=== PATIENT | female | born 1985 | race Caucasian/White ===

== ENCOUNTER → 2020-06-25 | Outpatient (CLI) | payer OTHER | END | disposition home or self-care (01) | LOC: LABWHC1 17:08 | PROVIDERS: ATTEND Family Medicine | DX: Z20.822 Contact with and (suspected) exposure to COVID-19 (principal) | CPT/HCPCS: U0003; C9803 ==

== ENCOUNTER → 2022-09-25 | Outpatient (CLI) | payer BC ==
[2022-09-25 16:32] LABS: Basophils # (A) 0.06 X 10*3/uL (0.00-0.10); Basophils % (A) 0.8 %; Eosinophils # (A) 0.24 X 10*3/uL (0.04-0.35); Eosinophils % (A) 3.1 %; HCT 46.1 % (37.2-46.3); HGB 14.3 d/dL (12.0-15.0); Lymphocytes # (A) 2.07 X 10*3/uL (0.90-5.00); MCH 28.8 pg (27.0-32.0); MCV 92.8 FL (80.0-97.0); Mean Platelet Volume 9.3 FL (9.5-12.2); Monocytes # (A) 0.56 X 10*3/uL (0.20-1.00); Monocytes % (A) 7.3 %; NRBC Per 100 WBC 0 X 10*3/uL (0.00-0.01); Neutrophils # (A) 4.73 X 10*3/uL (1.80-7.70); Neutrophils % (A) 61.5 %; Platelet Count 283 X 10*3/uL (140-440); RBC 4.97 X 10*6/uL (4.10-5.20); RDW 13.7 % (11.5-14.5); WBC 7.68 X 10*3/uL (4.50-10.00)
[2022-09-25 17:04] LABS: ALT 21 U/L (8-44); AST 16 U/L (13-35); Albumin 4.3 d/dL (3.8-4.9); Albumin/Globulin Ratio 1.54 Ratio (1.60-3.17); Alkaline Phosphatase 64 U/L (41-126); BUN/Creat Ratio 17.62 Ratio (12.00-20.00); Blood Urea Nitrogen 14.1 mg/dL (9.0-27.0); Calcium 9.3 mg/dL (8.7-10.3); Carbon Dioxide 19.4 mmol/L (21.6-31.8); Chloride 109 mmol/L (96-109); Globulin 2.8 d/dL (1.6-3.3); Glucose 98 mg/dL (70-110); Potassium 4.6 mmol/L (3.5-5.5); Sodium 140 mmol/L (135-145); Total Bilirubin <0.2 mg/dL (0.3-1.2); Total Protein 7.1 d/dL (6.2-8.2)
== END | disposition home or self-care (01) ==
LOC: LABWHC1 09:00
PROVIDERS: ATTEND Family Medicine
DX: E78.5 Hyperlipidemia, unspecified (principal)
CPT/HCPCS: 36415; 80053; 85025

== ENCOUNTER 2023-10-29 07:25 | Emergency (ER) | payer BC ==
[2023-10-29 07:31] VITALS: RESP 18
--- NOTE | 2023-10-29 07:41 | ED ---
Skin/Abscess/FB HPI - General Chief complaint: Skin/Abscess/Foreign Body Stated complaint: glass in foot Time Seen by Provider: 10/29/23 07:32 Source: patient, RN notes reviewed Mode of arrival: wheelchair Limitations: no limitations - History of Present Illness Initial comments: This is a 38-year-old female who presents to the emergency department for a piece of glass in her left foot. States that she had a thermometer explode and in the process of cleaning up the glass she accidentally stepped on it with her left foot. She has discomfort to the touch and with ambulation from the small piece of glass. Unsure when her last tetanus vaccine was. complaint: foreign body - Related Data Allergies Allergy/AdvReac Type Severity Reaction Status Date / Time No Known Allergies Allergy Verified 10/29/23 07:31 Review of Systems ROS Statement: Those systems with pertinent positive or pertinent negative responses have been documented in the HPI. ROS Other: All systems not noted in ROS Statement are negative. Past Medical History Past Medical History: No Reported History History of Any Multi-Drug Resistant Organisms: None Reported Past Surgical History: Cholecystectomy Past Psychological History: No Psychological Hx Reported Smoking Status: Never smoker Past Alcohol Use History: None Reported Past Drug Use History: None Reported General Exam Limitations: no limitations General appearance: alert, in no apparent distress Head exam: Present: atraumatic, normocephalic, normal inspection Respiratory exam: Present: normal lung sounds bilaterally. Absent: respiratory distress, wheezes, rales, rhonchi, stridor Cardiovascular Exam: Present: regular rate, normal rhythm, normal heart sounds. Absent: systolic murmur, diastolic murmur, rubs, gallop, clicks Neurological exam: Present: alert, oriented X3, CN II-XII intact Psychiatric exam: Present: normal affect, normal mood Skin exam: Present: other (Superficial puncture wound to the bottom of the left foot with no active bleeding.) Course Vital Signs 10/29/23 10/29/23 07:26 08:17 Temperature 98.2 F 98.1 F Pulse Rate 79 86 Respiratory 18 18 Rate Blood Pressure 155/90 145/76 O2 Sat by Pulse 99 99 Oximetry Procedures - Forgein Body Removal Soft Tissue Consent Obtained: verbal consent Site: foot Foreign Body Suspected: Glass Foreign Body Removed: yes Foreign Body Removal Technique: Instrumentation Medical Decision Making - Medical Decision Making This is a 38 year old female who presents to the emergency department for a piece of glass in her foot. Was pt. sent in by a medical professional or institution? @ -No Did you speak to anyone other than the patient for history? @ -No Did you review nursing and triage notes? @ -Yes, and I agree, it is accurate with regards to the patient's symptoms. Were old charts reviewed? @ -No Differential Diagnosis? @ -Laceration, abrasion, contusion, foreign body, burn, insect bite, this is not meant to be an all-inclusive list. EKG interpreted by me (3pts min.)? @ -Not obtained X-rays interpreted by me (1pt min.)? @ -Not obtained CT interpreted by me (1pt min.)? @ -Not obtained U/S interpreted by me (1pt. min.)? @ -Not obtained What testing was considered but not performed? (CT, X-rays, U/S, labs)? Why? @ -None What meds were considered but not given? Why? @ -None Did you discuss the management of the patient with other professionals? @ -No Did you reconcile home meds? @ -No Was smoking cessation discussed for >3mins.? @ -No Was critical care preformed (if so, how long)? @ -No Were there social determinants of health that impacted care today? How? (Homelessness, low income, unemployed, alcoholism, drug addiction, transportation, low edu. Level, literacy, decrease access to med. care, skilled nursing, rehab)? @ -No Was there de-escalation of care discussed even if they declined? (Discuss DNR or withdrawal of care, Hospice)? @ -No What co-morbidities impacted this encounter? (DM, HTN, Smoking, COPD, CAD, Cancer, CVA, Hep., AIDS, mental health diagnosis, sleep apnea, morbid obesity)? @ -None Was patient admitted / discharged? @ -Discharged. On exam she had a small puncture wound to the bottom of the left foot. The piece of glass was not well-visualized. Her foot was soaked in warm water for 10 to 15 minutes to soften up the skin and clean the wound. Afterwards a 30 gauge needle was used to feel for a foreign body. A small piece of glass was felt with the needle. The needle was then used to lightly deroof this area and the glass shard was exposed and easily removed with tweezers. Patient had significant relief in discomfort upon palpation and ambulation after the shard was removed. There were no large wounds or lacerations that needed repair. There was also no additional bleeding. The wound was cleansed and bandaged. Tetanus vaccine was updated. Patient discharged home in stable condition. Case discussed with ED attending Dr. Myers. Return precautions reviewed in depth, the patient is instructed to return to the emergency department with any new, worsening, or concerning symptoms. Patient verbalized understanding. Undiagnosed new problem with uncertain prognosis? @ -None Drug Therapy requiring intensive monitoring for toxicity (Heparin, Nitro, Insulin, Cardizem)? @ -None Were any procedures done? @ -Removal of glass in the soft tissue skin of the foot Diagnosis/symptom? @ -Glass shard in left foot Acute, or Chronic, or Acute on Chronic? @ -Acute Uncomplicated (without systemic symptoms) or Complicated (systemic symptoms)? @ -Uncomplicated Side effects of treatment? @ -None Exacerbation, Progression, or Severe Exacerbation] @ -Not applicable Poses a threat to life or bodily function? @ -No Disposition Clinical Impression: Glass foreign body in skin Disposition: HOME SELF-CARE Instructions (If sedation given, give patient instructions): Puncture Wound (ED) Additional Instructions: Return to the emergency department with any new, worsening, or concerning symptoms. Keep the area clean and covered until it heals. You can take ibuprofen and Tylenol as needed for pain relief. Follow up with your primary care provider in 1-2 days. Is patient prescribed a controlled substance at d/c from ED?: No Referrals: Nicolás Streeter MD [Primary Care Provider] - 1-2 days Time of Disposition: 08:03
[2023-10-29] MEDS: DIPH,PERTUS(ACELL)TETVAC-LF 0.5 ML VIAL IM ONE (07:43)
[2023-10-29 08:18] VITALS: BP 145/76; PULSE 86; TEMP 98.1
== END 2023-10-29 08:18 | disposition home or self-care (01) ==
LOC: EC 07:25
DX: S90.852A Superficial foreign body, left foot, initial encounter (principal); Z90.49 Acquired absence of other specified parts of digestive tract; Z23 Encounter for immunization; W25.XXXA Contact with sharp glass, initial encounter
CPT/HCPCS: 90471; 90715; 99282

== ENCOUNTER 2024-05-27 07:06 | Emergency (ER) | payer BC ==
[2024-05-27 07:14] VITALS: TEMP 98.7
--- NOTE | 2024-05-27 07:38 | ED ---
General Adult HPI - General Chief complaint: Chest Pain Stated complaint: Chest pain Time Seen by Provider: 05/27/24 07:09 Source: patient, RN notes reviewed, old records reviewed Mode of arrival: ambulatory Limitations: no limitations - History of Present Illness Initial comments: 39-year-old female presents for evaluation of palpitations. Patient has had intermittent palpitations over the past 4 days. She had an episode of brief chest pain lasting just seconds this occurred on Sunday. This was a left upper chest pain no associated vomiting or diaphoresis. She states the entire episode lasted 1 or 2 seconds. No further chest pain currently. No abdominal pain. No lower extremity pain or swelling. No fever. - Related Data Allergies Allergy/AdvReac Type Severity Reaction Status Date / Time egg Allergy Nausea & Verified 05/27/24 07:14 Vomiting Review of Systems ROS Statement: Those systems with pertinent positive or pertinent negative responses have been documented in the HPI. ROS Other: All systems not noted in ROS Statement are negative. Past Medical History Past Medical History: No Reported History History of Any Multi-Drug Resistant Organisms: None Reported Past Surgical History: Cholecystectomy Past Psychological History: No Psychological Hx Reported Smoking Status: Never smoker Past Alcohol Use History: None Reported Past Drug Use History: None Reported General Exam Limitations: no limitations General appearance: alert, in no apparent distress Head exam: Present: atraumatic, normocephalic Eye exam: Present: normal appearance, PERRL ENT exam: Present: normal exam Neck exam: Present: normal inspection. Absent: tenderness, meningismus Respiratory exam: Present: normal lung sounds bilaterally. Absent: respiratory distress, wheezes Cardiovascular Exam: Present: regular rate, normal rhythm GI/Abdominal exam: Present: soft. Absent: distended, tenderness, guarding Extremities exam: Present: normal inspection, normal capillary refill Neurological exam: Present: alert, oriented X3, CN II-XII intact. Absent: motor sensory deficit Psychiatric exam: Present: normal affect, normal mood Skin exam: Present: warm, dry, intact Course Vital Signs 05/27/24 05/27/24 05/27/24 07:12 07:14 07:33 Temperature 98.7 F Pulse Rate 96 76 Respiratory 20 20 Rate Blood Pressure 165/95 150/95 O2 Sat by Pulse 98 98 Oximetry 05/27/24 07:36 Temperature Pulse Rate Respiratory 20 Rate Blood Pressure O2 Sat by Pulse Oximetry Medical Decision Making - Medical Decision Making Was pt. sent in by a medical professional or institution ([facility], [facility], urgent care, hospital, or [facility]...) When possible be specific @ -No Did you speak to anyone other than the patient for history (EMS, parent, family, police, friend...)? What history was obtained from this source @ -No Did you review nursing and triage notes (agree or disagree)? Why? @ -I reviewed and agree with nursing and triage notes Were old charts reviewed (outside hosp., previous admission, EMS record, old EKG, old radiological studies, urgent care reports/EKG's, [facility] records)? Report findings @ -No old charts were reviewed Differential Palpitations Ventricular arrhythmias, atrial arrhythmias, myocardial infarction, anemia, thyrotoxicosis, electrolyte imbalance, hypokalemia, pulmonary embolism, pulmonary disease, drugs, alcohol, anxiety, stress.... This is not meant to be an all-inclusive list. EKG interpreted by me (3pts min.). @ -Sinus rhythm rate of 76, CO interval 144, QRS duration 82, QTc [address] segment elevation. X-rays interpreted by me (1pt min.). @ -None done CT interpreted by me (1pt min.). @ -None done U/S interpreted by me (1pt. min.). @ -None done What testing was considered but not performed or refused? (CT, X-rays, U/S, labs)? Why? @ -None What meds were considered but not given or refused? Why? @ -None Did you discuss the management of the patient with other professionals (professionals i.e. [facility], [facility], lab, RT, psych nurse, social sciences chair, line erector apprentice, teacher, budget officer, leather case finisher)? Give summary @ -No Was smoking cessation discussed for >3mins.? @ -No Was critical care preformed (if so, how long)? @ -No Were there social determinants of health that impacted care today? How? (Homelessness, low income, unemployed, alcoholism, drug addiction, transportation, low edu. Level, literacy, decrease access to med. care, shelter, rehab)? @ -No Was there de-escalation of care discussed even if they declined (Discuss DNR or withdrawal of care, Hospice)? DNR status @ -No What co-morbidities impacted this encounter? (DM, HTN, Smoking, COPD, CAD, Cancer, CVA, ARF, Chemo, Hep., AIDS, mental health diagnosis, sleep apnea, morbid obesity)? @ -None Was patient admitted / discharged? Hospital course, mention meds given and route, prescriptions, significant lab abnormalities, going to OR and other per tinent info. @ -39-year-old female with heart palpitations and a brief episode of chest discomfort which was 4 days prior. No sustained chest pain. Patient is in sinus rhythm without specific EKG changes. Normal CBC, normal CMP, negative troponin. Patient reassured. She will follow-up with her primary care provider. Return parameters discussed at length. Undiagnosed new problem with uncertain prognosis? @ -No Drug Therapy requiring intensive monitoring for toxicity (Heparin, Nitro, Insul in, Cardizem)? @ -No Were any procedures done? @ -No Diagnosis/symptom? @ -[Palpitation Acute, or Chronic, or Acute on Chronic? @ acute Uncomplicated (without systemic symptoms) or Complicated (systemic symptoms)? @ -Default Side effects of treatment? @ -No Exacerbation, Progression, or Severe Exacerbation? @ -No Poses a threat to life or bodily function? How? (Chest pain, [place], PR, pneumonia, PE, COPD, DKA, ARF, appy, cholecystitis, CVA, Diverticulitis, Homicidal, Suicidal, threat to staff... and all critical care pts) @ -low risk - Lab Data Result diagrams: 05/27/24 07:25 05/27/24 07:25 Lab Results 05/27/24 05/27/24 05/27/24 Range/Units 07:25 07:25 07:25 WBC 8.5 (3.8-10.6) k/uL RBC 5.06 (3.80-5.40) m/uL Hgb 15.0 (11.4-16.0) gm/dL Hct 47.0 H (34.0-46.0) % MCV 92.8 (80.0-100.0) fL MCH 29.6 (25.0-35.0) pg MCHC 31.8 (31.0-37.0) g/dL RDW 12.5 (11.5-15.5) % Plt Count 305 (150-450) k/uL MPV 6.8 Neutrophils % 71 % Lymphocytes % 19 % Monocytes % 5 % Eosinophils % 4 % Basophils % 0 % Neutrophils # 6.0 (1.3-7.7) k/uL Lymphocytes # 1.6 (1.0-4.8) k/uL Monocytes # 0.4 (0-1.0) k/uL Eosinophils # 0.3 (0-0.7) k/uL Basophils # 0.0 (0-0.2) k/uL PT 10.4 (10.0-12.5) sec INR 0.9 (<1.2) APTT 23.6 (22.0-30.0) sec Sodium 139 (137-145) mmol/L Potassium 4.3 (3.5-5.1) mmol/L Chloride 109 H (98-107) mmol/L Carbon Dioxide 18 L (22-30) mmol/L Anion Gap 12 mmol/L BUN 14 (7-17) mg/dL Creatinine 0.64 (0.52-1.04) mg/dL Est GFR (CKD-EPI)AfAm >90 (>60 ml/min/1.73 sqM) Est GFR (CKD-EPI)NonAf >90 (>60 ml/min/1.73 sqM) Glucose 119 H (74-99) mg/dL Calcium 9.3 (8.4-10.2) mg/dL Magnesium 2.1 (1.6-2.3) mg/dL Total Bilirubin 0.7 (0.2-1.3) mg/dL AST 22 (14-36) U/L ALT 19 (4-34) U/L Alkaline Phosphatase 65 (38-126) U/L Troponin I (0.000-0.034) ng/mL Total Protein 7.3 (6.3-8.2) g/dL Albumin 4.3 (3.5-5.0) g/dL 05/27/ Range/Units 07:25 WBC (3.8-10.6) k/uL RBC (3.80-5.40) m/uL Hgb (11.4-16.0) gm/dL Hct (34.0-46.0) % MCV (80.0-100.0) fL MCH (25.0-35.0) pg MCHC (31.0-37.0) g/dL RDW (11.5-15.5) % Plt Count (150-450) k/uL MPV Neutrophils % % Lymphocytes % % Monocytes % % Eosinophils % % Basophils % % Neutrophils # (1.3-7.7) k/uL Lymphocytes # (1.0-4.8) k/uL Monocytes # (0-1.0) k/uL Eosinophils # (0-0.7) k/uL Basophils # (0-0.2) k/uL PT (10.0-12.5) sec INR (<1.2) APTT (22.0-30.0) sec Sodium (137-145) mmol/L Potassium (3.5-5.1) mmol/L Chloride (98-107) mmol/L Carbon Dioxide (22-30) mmol/L Anion Gap mmol/L BUN (7-17) mg/dL Creatinine (0.52-1.04) mg/dL Est GFR (CKD-EPI)AfAm (>60 ml/min/1.73 sqM) Est GFR (CKD-EPI)NonAf (>60 ml/min/1.73 sqM) Glucose (74-99) mg/dL Calcium (8.4-10.2) mg/dL Magnesium (1.6-2.3) mg/dL Total Bilirubin (0.2-1.3) mg/dL AST (14-36) U/L ALT (4-34) U/L Alkaline Phosphatase (38-126) U/L Troponin I <0.012 (0.000-0.034) ng/mL Total Protein (6.3-8.2) g/dL Albumin (3.5-5.0) g/dL Disposition Clinical Impression: Heart palpitations Disposition: HOME SELF-CARE Condition: Good Instructions (If sedation given, give patient instructions): Heart Palpitations (DC) Is patient prescribed a controlled substance at d/c from ED?: No Referrals: Nicolás Streeter MD [Primary Care Provider] - 1-2 days Time of Disposition: 08:15
[2024-05-27 07:41] LABS: Basophils % (A) 0 %; Eosinophils # (A) 0.3 k/uL (0-0.7); Eosinophils % (A) 4 %; Lymphocytes # (A) 1.6 k/uL (1.0-4.8); Lymphocytes % (A) 19 %; MCH 29.6 pg (25.0-35.0); MCHC 31.8 g/dL (31.0-37.0); MCV 92.8 fL (80.0-100.0); Mean Platelet Volume 6.8; Monocytes # (A) 0.4 k/uL (0-1.0); Monocytes % (A) 5 %; Neutrophils % (A) 71 %; Platelet Count 305 k/uL (150-450); RBC 5.06 m/uL (3.80-5.40); RDW 12.5 % (11.5-15.5); WBC 8.5 k/uL (3.8-10.6)
[2024-05-27 07:52] LABS: INR 0.9 (<1.2); Partial Thromboplastin Time 23.6 sec (22.0-30.0); Prothrombin Time 10.4 sec (10.0-12.5)
[2024-05-27 07:55] LABS: ALT 19 U/L (4-34); AST 22 U/L (14-36); African American GFR (CKD) >90 (>60 ml/min/1.73 sqM); Albumin 4.3 g/dL (3.5-5.0); Alkaline Phosphatase 65 U/L (38-126); Anion Gap 12 mmol/L; Blood Urea Nitrogen 14 mg/dL (7-17); Calcium 9.3 mg/dL (8.4-10.2); Carbon Dioxide 18 mmol/L (22-30); Chloride 109 mmol/L (98-107); Glucose 119 mg/dL (74-99); Magnesium 2.1 mg/dL (1.6-2.3); Non-African American GFR(CKD) >90 (>60 ml/min/1.73 sqM); Potassium 4.3 mmol/L (3.5-5.1); Sodium 139 mmol/L (137-145); Total Bilirubin 0.7 mg/dL (0.2-1.3); Total Protein 7.3 g/dL (6.3-8.2)
[2024-05-27 08:38] VITALS: BP 140/75; PULSE 67; RESP 16
== END 2024-05-27 08:38 | disposition home or self-care (01) ==
LOC: EC 07:06
DX: R00.2 Palpitations (principal); Z91.012 Allergy to eggs
CPT/HCPCS: 36415; 80053; 83735; 84484; 85025; 85610; 85730; 93005; 99285

== ENCOUNTER → 2024-10-23 | Outpatient (CLI) | payer BC ==
--- NOTE | 2024-10-23 13:53 | CA ---
Stress Echo Report Anne Batres Age: 39 Gender: F : 1985 Exam Date: 10/23/2024 10:35 Exam Location: [facility] Ht (in): 64 Wt (lb): 297 Ordering Physician: Nicolás Streeter MD Referring Physician: Ferdinand ELLIOTT Quality Process Engineer: JODY, Technologist Procedure CPT: Indication: I10 ESSENTIAL HTN ICD-9 Codes: Rhythm: Patient History: Chest pain, shortness of breath and palpitations Cardiac Medications: Medications in past 24 hours: Contrast: Stress Results Protocol: Dada Total dose(mL): Exercise Duration (min:sec): 6:[address] Depression (mm): Angina Score: Tam Score: METS: 7.1 Resting HR: 91 Resting BP: 130 / 57 Peak HR: 174 Peak BP: 209 / 72 Max Predicted HR: 180 97 % Max Predicted HR Target HR: 153 Double Product: [id number] Stress Summary: BP Response: Reason for Termination: Reached target heart rate or work-load Cardiac Symptoms: No symptoms ECG Analysis Resting ECG: Normal sinus rhythm Stress ECG: No significant ST or T wave changes that are concerning for ischemia Arrhythmia: There were no sustained arrhythmias or ectopic beats noted during the stress test Echo Analysis Resting Echo: Normal global and segmental systolic function with no resting regional wall motion abnormality Peak Echo Analysis: Normal augmentation of global and segmental systolic function with no stress-induced regional wall motion abnormality MEASUREMENTS (Male/Female) Normal Values CONCLUSIONS Suboptimal exercise tolerance for age only achieving 7.1 METS Slightly hypertensive response to treadmill exercise suggestive of cardiac deconditioning Nonischemic ECG and echocardiographic response to treadmill exercise Overall low probability for severe obstructive CAD Dr Alexander Briggs (Electronically Signed) Final Date: 23 October 2024 13:06
--- NOTE | 2024-10-23 13:54 | CA ---
Transthoracic Echo Report Name: Anne Batres Age: 39 Gender: F : 1985 Exam Date: 10/23/2024 10:21 Exam Location: [place] [facility] Ht (in): 64 Wt (lb): 297 Ordering Physician: Nicolás Streeter MD Attending/Referring Phys: [id number], Ferdinand Private Secretary Penelope Carr, [facility] Procedure CPT: Indications: I10 HTN Cardiac Hx: Technical Quality: Good Contrast 1: Total Dose (mL): Contrast 2: Total Dose (mL): MEASUREMENTS (Male / Female) Normal Values 2D ECHO LV Diastolic Diameter PLAX 5.4 cm 4.2 - 5.9 / 3.9 - 5.3 cm LV Systolic Diameter PLAX 2.8 cm IVS Diastolic Thickness 0.7 cm 0.6 - 1.0 / 0.6 - 0.9 cm LVPW Diastolic Thickness 0.7 cm 0.6 - 1.0 / 0.6 - 0.9 cm LV Relative Wall Thickness 0.3 RV Internal Dim ED PLAX 2.6 cm LA Systolic Diameter LX 3.7 cm 3.0 - 4.0 / 2.7 - 3.8 cm LV Diastolic Volume MOD 4C 85.1 cm??? LV Systolic Volume MOD 4C 38.7 cm??? LV Ejection Fraction MOD 4C 54.5 % LV Cardiac Index MOD 4C 1127.2 cm???/min???m??? LV Diastolic Length 4C 7.2 cm LV Systolic Length 4C 5.8 cm LV Diastolic Volume MOD 2C 91.9 cm??? LV Systolic Volume MOD 2C 40.0 cm??? LV Ejection Fraction MOD 2C 56.4 % LV Cardiac Index MOD 2C 1260.1 cm???/min???m??? LV Diastolic Length 2C 7.9 cm LV Systolic Length 2C 6.4 cm LA Volume 56.8 cm??? 18 - 58 / 22 - 52 cm??? LA Volume Index 22.3 cm???/m??? 16 - 28 cm???/m??? M-MODE Aortic Root Diameter MM 2.8 cm AV Cusp Separation MM 2.2 cm DOPPLER AV Peak Velocity 125.8 cm/s AV Peak Gradient 6.3 mmHg AV Mean Velocity 85.0 cm/s AV Mean Gradient 3.3 mmHg AV Velocity Time Integral 29.8 cm LVOT Peak Velocity 109.3 cm/s LVOT Peak Gradient 4.8 mmHg LVOT Velocity Time Integral 26.0 cm MV Area PHT 3.6 cm??? Mitral E Point Velocity 92.6 cm/s Mitral A Point Velocity 68.6 cm/s Mitral E to A Ratio 1.3 MV Deceleration Time 208.2 ms TR Peak Velocity 166.4 cm/s TR Peak Gradient 11.1 mmHg Right Ventricular Systolic Press 16.1 mmHg FINDINGS Left Ventricle Left ventricular ejection fraction is estimated at 55-60 %. Left ventricular cavity size normal. Normal left ventricular wall motion. Left ventricular wall thickness normal. Right Ventricle Normal right ventricular size. Right ventricular systolic pressure within normal limits. Right Atrium Normal right atrial size. No right atrial thrombus or mass seen. Left Atrium Mildly increased left atrial volume. No left atrial thrombus or mass present. Mitral Valve Structurally normal mitral valve. No mitral stenosis, regurgitation or prolapse. Aortic Valve Trileaflet aortic valve. No aortic valve stenosis or regurgitation. Tricuspid Valve Structurally normal tricuspid valve. Trace to mild tricuspid regurgitation. Pulmonic Valve Structurally normal pulmonic valve. No pulmonic regurgitation. Pericardium No pericardial effusion. Aorta Normal size aortic root and proximal ascending aorta. CONCLUSIONS Left ventricular ejection fraction is estimated at 55-60 %. No obvious regional wall motion abnormality Normal RV size and systolic function No significant valve dysfunction Previewed by: Dr Alexander Briggs (Electronically Signed) Final Date: 23 October 2024 13:20
--- NOTE | 2024-10-23 23:15 | XR ---
EXAMINATION TYPE: XR lumbosacral spine min 4V DATE OF EXAM: 10/23/2024 11:37 AM COMPARISON: None. CLINICAL INDICATION: Female, 39 years old with history of M54.32 sciatica, pain TECHNIQUE: 5 view(s) obtained. FINDINGS: 5 lumbar type vertebral bodies. The pedicles are intact. No spondylolytic defects are evident. Verteb ral Body heights and disc heights are preserved. IMPRESSION: 1. No acute osseous abnormality lumbar spine. [facility], , 10/23/2024 11:12 PM
== END | disposition home or self-care (01) ==
LOC: RADNMMAIN 10:00
PROVIDERS: ATTEND Family Medicine
DX: I10 Essential (primary) hypertension (principal); M54.32 Sciatica, left side; R00.2 Palpitations; I07.1 Rheumatic tricuspid insufficiency
CPT/HCPCS: 72110; 93306; 93351